=== PATIENT | female | born 1975 | race Caucasian/White ===

== ENCOUNTER 2016-12-29 17:20 | Emergency (ER) | payer SELFPAY ==
[~2016-12-29] VITALS: Ht 162.6 cm; Wt 52.0 kg
[2016-12-29] MEDS ORDERED: ONDANSETRON 2 MG/ML (Z0FRAN) 2 ML VIAL IV ONE (18:25)
[2016-12-29] MEDS ORDERED: SODIUM CHLORIDE FLUSH 3 ML SYR IV PRN (18:25)
[2016-12-29] MEDS ORDERED: SODIUM CHLORIDE FLUSH 10 ML SYR IV PRN (18:25)
[2016-12-29] MEDS ORDERED: HYDROmorphone 1 MG/ML (DILAUDID) SYRINGE IV ONE (18:25)
[2016-12-29 18:45] LABS: BASOPHILS % (AUTO) 0 % (0-2); EOSINOPHILS # (AUTO) 0.2 10^3uL; EOSINOPHILS % (AUTO) 2 % (0-4); LYMPHOCYTES # (AUTO) 1.3 X10^3; MEAN CORPUSCULAR HEMOGLOBIN 30.8 PG (26.0-34.0); MEAN CORPUSCULAR HGB CONC 34.6 g/dL (31.0-37.0); MEAN CORPUSCULAR VOLUME 89 FL (80-100); MONOCYTES # (AUTO) 0.7 X10^3; MONOCYTES % (AUTO) 7 % (3-11); NEUTROPHILS # (AUTO) 7.1 X10^3; NEUTROPHILS % (AUTO) 77 % (51-67); PLATELET COUNT 234 10^3uL (150-450); WHITE BLOOD COUNT 9.24 10^3uL (4.0-11.0)
[2016-12-29 18:55] LABS: ANION GAP 14.5 MEQ/L (3-15); CALCULATED IONIZED CALCIUM 3.9 mg/dL (3.8-4.6); TOTAL PROTEIN 7.3 g/dL (6.4-8.5)
[2016-12-29] MEDS ORDERED: KETOROLAC 30 MG/ML (TORADOL) 1 ML VIAL IV ONE (19:10)
--- NOTE | 2016-12-29 19:10 | NUR ---
O2 sat 89-90% on room air. Dr. Mendenhall notified. O2 applied at 2L per nc. O2 sat increases to 97%.
--- NOTE | 2016-12-29 19:42 | NUR ---
Patient reports pain level at "3". Denies nausea.
--- NOTE | 2016-12-29 19:45 | NUR ---
Message left on pt's boyfriend's voice mail, as per pt request, asking boyfriend (Isaías) to come sit with her while she is in ED. Also left ED number for him to call, if needed.
--- NOTE | 2016-12-29 19:48 | NUR ---
stage technician now with patient in ER-7.
[2016-12-29 20:36] LABS: BILIRUBIN,URINE Negative (Negative); CLARITY,URINE Clear; COLOR,URINE Yellow; GLUCOSE, URINE (UA) Negative (Negative); LEUKOCYTE ESTERASE ,URINE Negative (Negative); UROBILINOGEN,URINE 0.2 mg/dL (0.2-1.0)
[2016-12-29 21:04] LABS: AMPHETAMINE SCREEN, URINE Positive (Negative); CANNABINOID SCREEN, URINE Negative (Negative); METHAMPHETAMINE SCREEN URINE S NEGATIVE (NEGATIVE); OPIATE SCREEN URINE Negative (Negative); PROPOXYPHENE STAT NEGATIVE (NEGATIVE)
[2016-12-29 23:05] VITALS: BP 99/61
== END 2016-12-29 21:25 | disposition home or self-care (01) ==
LOC: ED 17:22
DX: S30.1XXA Contusion of abdominal wall, initial encounter (principal); Y04.2XXA Assault by strike against or bumped into by another person, initial encounter; Y93.89 Activity, other specified; Y92.007 Garden or yard of unspecified non-institutional (private) residence as the place of occurrence of the external cause
CPT/HCPCS: 36415; 71260; 74177; 80053; 80307; 81003; 83690; 85025; 96361; 96374; 96375; 99283; J1170; J1885; J2405; J7030; Q9967